=== PATIENT | female | born 1940 | race Caucasian/White ===

== ENCOUNTER 2019-04-30 10:13 | Inpatient (IN) ==
[2019-04-30] MEDS ORDERED: NS 1,000 ML IV ONE (10:36)
[2019-04-30] MEDS ORDERED: CARDIZEM IV ONE ×2 (10:36→12:48)
[2019-04-30 10:53] LABS: HEMATOCRIT 41.4 % (37.0-47.0); HEMOGLOBIN 13.2 g/dL (12.0-16.0); MCH 25.5 PG (27-31); MCHC 31.9 g/dL (33-37); MCV 79.9 FL (81-99); MPV 10.5 FL (7.4-10.4); RBC 5.18 XMIL (4.2-5.4); RDW 17.8 % (11.5-14.5); WBC 7.14 X1000 (4.8-10.8)
[2019-04-30 11:06] LABS: ALLEN TEST YES; BE -1.3 mmoll (-3.0-3.0); BLOOD TYPE ARTERIAL; HCO3-(ACT) 23.9 mmoll (20.0-26.0); METHB 0.8 % (0.0-1.5); O2(CT) 17.8 mL/dL (15.0-23.0); O2HB 95.4 % (95.0-99.0); PCO2(98.6) 35 mmHg (35-45); PO2(98.6) 89 mmHg (60-100); SAMPLE BLOOD; SAO2 97.4 % (95.0-100.0); THB 13.2 g/dL (11.5-17.4); pH(98.6) 7.42 (7.35-7.45)
[2019-04-30 11:07] LABS: MODALITY ROOM AIR
[2019-04-30] MEDS ORDERED: ASPIRIN PO ONE (11:21)
--- NOTE | 2019-04-30 11:21 | PROVIDER DOCUMENTATION ---
HPI-Cardiac General - General Chief Complaint: Palpitations Stated Complaint: HEART PT-HEART RACING Time Seen by Provider: 04/30/19 10:26 Source: patient Allergies/Adverse Reactions: Patient Allergies Allergy/AdvReac Type Severity Reaction Status Date / Time No Known Allergies Allergy Verified 04/30/19 11:02 Home Medications: Home Medication List Medication Instructions Recorded Confirmed Last Taken Type Allopurinol [Zyloprim] 100 mg PO QHS 10/29/17 04/30/19 04/29/19 History Amlodipine Besylate [Norvasc] 5 mg PO QPM 10/29/17 04/30/19 04/29/19 History Aspirin [Aspir-Low] 81 mg PO QAM 10/29/17 04/30/19 04/29/19 History Calcium Carb, Citrate/Vit D3 1 each PO BID 10/29/17 04/30/19 04/30/19 History [Calcium + D3 ER Tablet] Potassium Chloride [Klor-Con M20] 20 meq PO DAILY 03/02/18 04/30/19 04/30/19 History Rivaroxaban [Xarelto] 15 mg PO DAILY #30 tab 03/03/18 04/30/19 04/29/19 Rx Atorvastatin Calcium 1 tab PO DAILY 04/25/19 04/30/19 04/30/19 History Levothyroxine Sodium 1 tab PO DAILY 04/25/19 04/30/19 04/30/19 History Metoprolol Tartrate 1 tab PO BID 04/25/19 04/30/19 04/30/19 History Torsemide [Demadex] 1 tab PO DAILY 04/25/19 04/30/19 04/30/19 History - History of Present Illness-Cardiac Nature of Presenting Problem: Patient with h/o Afib compliant with med reports palpitation/fast heart rate this morning with mild sob. denies nausea, vomiting or diaphoresis. has no acute exacerbation of her chronic mild aching chest pain. She took her regular dose of metoprolol 25mg around 7am today but still symptomatic. She takes baby ASA at bed time Quality of Pain: reports: aching Timing: intermittent Context/Activities at Onset: reports: none Modifying Factors: improves with: palpation Palpitation Quality: fast/pounding heart beat History of arrythmia: reports: A-Fib Nitro Today/Relief: reports: no nitro taken today Aspirin Treatment Today: reports: no aspirin today Associated Symptoms: reports: denies symptoms Review of Systems - Adult - REVIEW OF SYSTEMS - ADULT Constitutional: reports: no symptoms reported Eyes: reports: no symptoms reported Ears, Nose, Mouth & Throat: reports: no symptoms reported Cardiovascular: reports: see HPI Respiratory: reports: see HPI Gastrointestinal: reports: no symptoms reported Genitourinary: reports: no symptoms reported Musculoskeletal: reports: no symptoms reported Integumentary: reports: no symptoms reported Neurological: reports: no symptoms reported Psychiatric: reports: no symptoms reported Endocrine: reports: no symptoms reported Hematologic/Lymphatic: reports: no symptoms reported Allergic/Immunologic: reports: no symptoms reported Past History - Adult - PAST MEDICAL HISTORY-ADULT Review of Records: reports: Nursing Assessment Review, Medications Reviewed, Social history reviewed & non-contributory. Major Childhood Illnesses: reports: denies history Cardiovascular: reports: A-Fib, HTN Respiratory: reports: denies history Gastrointestinal: reports: GERD Obstetrical/Gynecological: reports: denies history Genitourinary: reports: denies history Musculoskeletal: reports: denies history Neurological: reports: denies history Endocrine/Immune: reports: Diabetes Other Conditions: reports: denies history - PRIOR SURGERIES/PROCEDURES Surgical/Procedure History: reports: none - IMMUNIZATION STATUS Childhood Immunizations: See Nurse Assessment Flu Vaccine: See Nurse Assessment - FAMILY HISTORY Family History: reviewed, not pertinent - SOCIAL HISTORY Smoking: denies Substance Use: none/never Alcohol Use Frequency: never Physical Exam-General - PHYSICAL EXAM-ADULT Initial Vital Signs Reviewed: Yes - CONSTITUTIONAL General Appearance: appears well, alert, no apparent distress - EYES Eyes: PERRL/EOMI - HEAD, EARS, NOSE, MOUTH & THROAT HENMT: normocephalic/atraumatic, moist mucous membranes - NECK Neck: non-tender, full range of motion, supple - RESPIRATORY Respiratory: chest non-tender, lungs clear, normal breath sounds - CARDIOVASCULAR Cardiovascular: no edema, tachycardia - GASTROINTESTINAL (ABDOMEN) Abdominal Exam: non tender, soft, no organomegaly - MUSCULOSKELETAL Back Exam: normal inspection, no CVA tenderness, no vertebral tenderness Extremity: no pedal edema, no calf tenderness - SKIN Integumentary: normal color - NEUROLOGIC Neurologic: community manager II-XII nml as tested - PSYCHIATRIC Psych/Mental Status: oriented x 3 - HEART Score HEART Score: History: Slightly Suspicious HEART Score: ECG: Non-Specific Repolarization Disturbance/LBBB/PM HEART Score: Age: > or = 65 Years HEART Score: Risk Factors for Atherosclerotic Disease: > or = 3 Risk Factors or History of Atherosclerotic Disease HEART Score: Troponin: < or = Normal Limit Total HEART Score:: 5 Progress - PLAN OF CARE/RESULTS Progress/Plan/Lab Results: Bedside Urine ED: Urine Bedside Start: 04/30/19 10:39 Freq: NOW Status: Inactive Protocol: Activity Type Activity Date Activity User E-Sign Co-Sign Detail Recorded Client Recorded Date Recorded By Edit Status 04/30/19 11:21 AKOTUGUOR Active=>Inactive [id number] 04/30/19 11:21 AKOTUGUOR Orders Category Date Time Status [facility] Routine [id number] 04/30/19 13:41 Active Activity - Up with Assistance ORDERED Care 04/30/19 13:41 Active Cardiac Monitoring DIRECTED Care 04/30/19 10:39 Completed Currently Rec Anticoagulation [QM] ROUTINE Care 04/30/19 13:41 Completed Daily Weights 0500 Care 04/30/19 16:03 Active FSBS/Accucheck Result Q4H Care 04/30/19 10:39 Completed FSBS/Accucheck Result Q4H Care 04/30/19 13:44 Active Intake and Output-Strict ORDERED Care 04/30/19 13:41 Active Misc. NRSG Communication Order DIRECTED Care 04/30/19 15:06 Active Nursing- MD Consult Request ROUTINE Care 04/30/19 13:43 Completed Saline Loc NOW Care 04/30/19 10:39 Completed Z-Document. for Tele Applied ORDERED Care 04/30/19 13:42 Completed Physician/Provider Consults Routine Cons 04/30/19 13:41 Ordered Diabetic Diet Diet 04/30/19 13:43 Active cxr [CHEST-1 VIEW] [RAD] Stat Exams 04/30/19 12:44 Completed ABG [RESP] Routine Lab 04/30/19 10:57 Completed ACETONE SERUM [CHEM] Stat Lab 04/30/19 10:36 Completed BLOOD CULTURE [BLDCUL] Stat Lab 04/30/19 13:46 Results CBC WITH DIFF [HEME] Routine Lab 05/01/19 05:56 Completed CBC WITH NO DIFF [HEME] Stat Lab 04/30/19 10:36 Completed CK PROFILE [SP CHEM] Stat Lab 04/30/19 10:36 Completed COMPREHENSIVE METABOLIC PANEL [CHEM] Stat Lab 04/30/19 10:36 Completed INFLUENZA SCREEN A/B Stat Lab 04/30/19 15:25 Completed LACTATE, PLASMA [CHEM] Stat Lab 04/30/19 10:36 Completed LACTATE, PLASMA [CHEM] Stat Lab 04/30/19 13:46 Completed MAGNESIUM [CHEM] Stat Lab 04/30/19 10:36 Completed PHOSPHORUS [CHEM] Stat Lab 04/30/19 10:36 Completed PRO B-NATRIURETIC PEPTIDE Stat Lab 04/30/19 13:46 Completed RENAL PROFILE [CHEM] Routine Lab 05/01/19 05:56 Completed TROPONIN T Stat Lab 04/30/19 10:36 Completed TROPONIN T Stat Lab 04/30/19 13:46 Completed TSH Stat Lab 04/30/19 10:36 Completed TSH Stat Lab 04/30/19 13:46 Completed URINALYSIS [URINALYSIS] Stat Lab 04/30/19 13:05 Ordered 0.9% Sodium Chloride Inj [Ns] 1,000 ml Med 04/30/19 10:36 Discontinued IV 999 mls/hr Aspirin Med 04/30/19 11:21 Discontinued 81 mg PO NOW ONE Aspirin EC Med 05/01/19 09:00 Active 81 mg PO QAM Diltiazem 100 mg/Ns [Cardizem 100 mg/Ns] Med 04/30/19 13:30 Active 100 mg in 100 ml IV As Directed mls/hr Diltiazem [Cardizem] Med 04/30/19 10:36 Discontinued 10 mg IV NOW ONE Diltiazem [Cardizem] Med 04/30/19 12:48 Discontinued 10 mg IV NOW ONE Insulin Detemir [Levemir] Med 04/30/19 21:00 Active 25 unit SUBQ BID Insulin Detemir [Levemir] Med 04/30/19 13:43 Discontinued 35 unit SUBQ NOW ONE Insulin Human Regular [Humulin R] Med 04/30/19 13:21 Discontinued 10 unit IV NOW ONE Insulin Human Regular [Humulin R] Med 04/30/19 13:45 Active See Protocol SUBQ Q4H Insulin Lispro [Humalog] Med 04/30/19 16:00 Discontinued See Protocol SUBQ 0700,1100,1600,2100 Levothyroxine [Synthroid] Med 05/01/19 07:00 Active 75 microgm PO DAILY@0700 Levothyroxine [Synthroid] Med 05/01/19 09:00 Discontinued DOSE microgm PO DAILY Metoprolol [Lopressor] Med 04/30/19 20:00 Active 25 mg PO Q6HR Rivaroxaban [Xarelto] Med 05/01/19 09:00 Discontinued 15 mg PO DAILY Rivaroxaban [Xarelto] Med 04/30/19 17:00 Active 15 mg PO WSUPPER Oxygen Device Routine Oth 04/30/19 16:02 Completed Pulse Oximetry Routine Oth 04/30/19 16:02 Completed Telemetry [OM.EQ] Routine Oth 04/30/19 13:41 Active EKG [EKG] Routine Ther 04/30/19 10:39 Draft EKG [EKG] Stat Ther 04/30/19 13:10 Draft Transfer/Admit Order [TRANSFER] Routine Transfer 04/30/19 13:45 Completed Result Diagrams: 05/01/19 05:56 05/01/19 05:56 - REASSESSMENT Reassessment #1 Time Reassessed: 13:20 Status: improving (Seen and examined by me. Case discussed with Dr. Pugh at shift change. We will start patient on cardizem drip, culture her and look for a possible source of infection. I have not started antibiotics as this time as there is no obvous source. Also given IV insulin.) Reassessment Comment: HR still goes up above 100 with any minimal effort - EKG 1 Time of EKG reading by physician:: 10:20 EKG Read and Signed by:: Addis Pugh EKG Interpretation (*Must complete 3 of following elements*): Abnormal Rate: 149 Mozier: left QRS: normal 2 Time of EKG reading by physician:: 13:27 EKG Read and Signed by:: Husam Juarez EKG Interpretation (*Must complete 3 of following elements*): Abnormal Rate: 73 Rhythm: A flutter with variable block Mozier: normal QRS: other (early transition) ST Wave: non-specific ST changes Prior EKG Comparison: changes noted - CONSULTS/PCP/HOSPITALIST Notification #1 *Consult/PCP/Hospitalist*: Tyler Reason/Comments: consulted by Dr. Frias around 1300 - start on cardibartolo saray Consult Disposition: Admit #2 Consult: JOVAN Le Time Discussed: 13:23 Consult Disposition: Will see in ED - CHANGE OF SHIFT REPORT (ED Provider) 1 Report Given and Care Transferred to:: Dr Juarez as I was leaving to a different facility Time of Transfer: 13:00 Departure - Departure Date of Disposition Decision: 04/30/19 Time of Disposition Decision: 13:23 DIAGNOSIS: Atrial fibrillation with RVR, Lactic acidosis due to diabetes mellitus, Type 2 diabetes mellitus with hyperosmolarity, without long-term current use of insulin, Type 2 diabetes mellitus with hyperglycemia, without long-term current use of insulin Disposition: ADMITTED INPATIENT 09 Certified Medical Emergency: Emergent Condition: Fair - Critical Care Note This patient required my direct & personal management of CC.: Yes Total Time (mins): 45 Critical Care Statement: This patient required my direct personal management to treat or rule out processes, the absence of which, could potentiallly result in sudden, clinically significant life or limb threatening deterioration. Attestation - Physician/ RUBIO Attestation Patient care was provided by Advanced Practice Provider:: No The physician spent face to face time with patient:: Yes Advanced Practice Provider documentation review:: Supervising physician onsite and consulted in the evaluation and care of this patient. The physician did have a face to face encounter with the patient.
[2019-04-30 11:35] LABS: AGAP 20; ALB/GLOB RATIO 1.3; ALBUMIN 3.9 g/dL (3.5-5.0); ALKALINE PHOSPHATASE 109 U/L (32-104); BUN 30 mg/dL (8-22); CALCIUM 9.8 mg/dL (8.8-10.2); CHLORIDE 89 mmol/L (98-107); COSMO 289; CREATININE 2.1 mg/dL (0.5-0.9); ESTIMATED GFR 23; GLUCOSE 424 mg/dL (70-104); GOT 31 U/L (10-30); GPT 20 U/L (10-36); MAGNESIUM 1.8 mg/dL (1.5-2.7); PHOSPHORUS 4.4 mg/dL (2.7-4.5); POTASSIUM 4.3 mmol/L (3.5-5.1); SODIUM 132 mmol/L (136-145); TCO2 23 mmol/L (25-35); TOTAL BILIRUBIN 0.57 mg/dL (0.20-1.00); TOTAL PROTEIN 6.8 g/dL (6.3-8.3)
--- NOTE | 2019-04-30 11:50 | EKG Report ---
Test Performed on : 04/30/2019 10:17:44 AM Test Reason : papitation Blood Pressure : / mmHG Vent. Rate : 149 BPM Atrial Rate : 150 BPM P-R Int : 000 ms QRS Dur : 074 ms QT Int : 314 ms P-R-T Axes : 000 -16 029 degrees QTc Int : 494 ms Supraventricular tachycardia. Nonspecific T wave abnormality Abnormal ECG When compared with ECG of 25-APR-2019 09:04, (Unconfirmed) Sinus rhythm. has replaced Atrial fibrillation. Vent. rate has increased BY 49 BPM Unconfirmed Result
[2019-04-30 12:01] LABS: ACETONE SERUM NEGATIVE (NEGATIVE)
[2019-04-30] MEDS ORDERED: HUMULIN R IV ONE (13:21)
[2019-04-30] MEDS ORDERED: LEVEMIR SUBQ ONE (13:43)
[2019-04-30] MEDS: HUMULIN R SUBQ SCH ×3 (13:45→21:15)
[2019-04-30] MEDS: CARDIZEM 100 MG/NS 100 MG/100 ML IVPB IV SCH ×2 (14:12→23:21)
--- NOTE | 2019-04-30 14:13 | Diag Imaging Result Doc PS360 ---
CHEST-1 VIEW - 04/30/2019 INDICATION: sob COMPARISON: 04/25/2019 FINDINGS: The lungs are normally expanded and clear. Heart size and mediastinal contours are normal. No pneumothorax or pleural effusion. IMPRESSION: Negative exam. Electronically signed by Pradeep Valentin 04/30/2019 2:10 PM
--- NOTE | 2019-04-30 14:17 | HISTORY AND PHYSICAL ---
CHIEF COMPLAINT: My heart is racing. HISTORY OF PRESENT ILLNESS: This is a 79-year-old female with a history of atrial fibrillation/atrial flutter status post cardioversion in October 2017 that was unsuccessful. She presents to the emergency room complaining of her heart fluttering that started this morning. She denied any chest pain, any dizziness, any shortness of breath. On presentation to the emergency room she was found to be in atrial fibrillation with heart rates ranging from 150 to 190 for which she was given IV hydration and Cardizem 10 mg IV x2. PAST MEDICAL HISTORY: 1. Atrial fibrillation/atrial flutter status post cardioversion in October 2017. 2. Hypertension. 3. Gout. 4. Hyperlipidemia. 5. Gastroesophageal reflux disease. 6. Hypothyroid. 7. Diabetes mellitus type 2 on no medications as metformin was stopped secondary to diarrhea. SOCIAL HISTORY: She is . She denies any alcohol, tobacco, or illicit drug use. FAMILY HISTORY: Positive for coronary disease in her mother and her father of cancer. REVIEW OF SYSTEMS: Discussed with patient with pertinent positives stated in the HPI. She denied any syncope, dizziness, any chest pain, any shortness of breath, cough, fever, chills, night sweats, any nausea, vomiting, diarrhea, constipation, black or bloody vomitus or stools, any hematuria, dysuria, frequency, urgency. ALLERGIES: No known drug allergies. HOME MEDICATIONS: A list will be obtained by the nursing staff and once verified will review and restart as appropriate. PHYSICAL EXAM: This is a 79-year-old female who is lying on the stretcher in the emergency room in no distress. VITAL SIGNS: Blood pressure is 146/91, heart rates range from 86 to 190, respirations are 20, temperature is 98.1 degrees oral with room air saturations 99%. HEENT: Pupils equal, round, react to light. EOMs are intact. Sclerae are anicteric. Head is normocephalic, atraumatic. Mucous membranes are dry. NECK: Supple with trachea midline. CARDIOVASCULAR: Irregularly irregular rate and rhythm. S1 and S2 are appreciated. She has no lower extremity edema. Calves are nontender bilateral. PULMONARY: Breath sounds are clear. No increased work of breathing noted. Chest rises and falls symmetric with respiration. Chest wall is nontender to palpation. GASTROINTESTINAL: Abdomen soft, nontender, nondistended with bowel sounds in all 4 quadrants. NEUROLOGIC: She is alert, oriented x3. SKIN: Warm and dry. LABS: WBC is 7.1 with hemoglobin 13.2, hematocrit 41.4, platelets of 246,000. Sodium 132, potassium 4.3, BUN 30, creatinine 2.1 with a glucose of 424. Troponin is negative. Lactate is 3. TSH is 1.65. Acetone is negative. CO2 is 23 with a gap of 20. Chest x-ray is pending. ASSESSMENT AND PLAN: 1. Atrial fibrillation/atrial flutter with rapid ventricular rate in a patient status post cardioversion in October 2017. 2. Diabetes mellitus with hyperglycemia in a patient who metformin discontinued and is on no blood sugar controlling antidiabetic medications. 3. Hypertension. 4. Gout. 5. Gastroesophageal reflux disease. 6. Hypothyroid. PLAN: 1. The patient will be admitted to the PVC unit. She will be placed on a Cardizem drip. Will consult Cardiology. We will continue telemetry. Will identify her home medications and continue these as appropriate. Give Levemir 35 units subcu now, pattern blood glucose with sliding scale insulin. Repeat a CBC and renal profile in the morning. Will obtain a chest x-ray. 2. Acute kidney injury in the setting of chronic kidney disease. In review of her old labs, baseline creatinine looks like it is 1.4 to 1.6. Elevated creatinine today could be secondary to intravascular volume depletion due to blood sugar. Will continue to hydrate, treat blood sugars and trend her labs. We will hold any renal toxic medications, renal dose medications as appropriate. 3. For deep vein thrombosis prophylaxis will continue her anticoagulation. 4. Patient was examined and plan was discussed with Dr. Weber. Further treatments pending hospital course. Dictated by JOVAN Jeffers for Hattie Weber MD cc: JOVAN Jeffers MD I performed a face to face encounter on the patient. I reviewed all labs and imaging on the patient. I agree with the H&P as dictated. [facility]
--- NOTE | 2019-04-30 15:32 | EKG Report ---
Test Performed on : 04/30/2019 1:10:15 PM Test Reason : ED. NO order in [place] Blood Pressure : / mmHG Vent. Rate : 073 BPM Atrial Rate : 300 BPM P-R Int : 000 ms QRS Dur : 074 ms QT Int : 388 ms P-R-T Axes : 000 -16 -06 degrees QTc Int : 427 ms Atrial flutter. with variable AV block. Nonspecific ST and T wave abnormality Abnormal ECG When compared with ECG of 30-APR-2019 10:17, (Unconfirmed) Atrial flutter. has replaced Sinus rhythm. Vent. rate has decreased BY 76 BPM Nonspecific T wave abnormality, improved in Inferior leads Unconfirmed Result
--- NOTE | 2019-04-30 15:40 | CARDIOLOGY CONSULTATION ---
DATE: 04/30/2019 CHIEF COMPLAINT: Heart racing, lightheadedness. HISTORY OF PRESENT ILLNESS: Ms. Valencia is a 79-year-old white female with a history of atrial fib/flutter. She had a cardioversion performed in October 2017. She follows with myself as well as Dr. Nuñez. Last visit with Dr. Nuñez was in December 2018. At that time, she was having frequent PACs. There was a feeling that if she went back into some sort of atrial arrhythmia, she may need an AV node ablation with pacemaker implantation. Patient began in the last couple of days having more palpitations. This morning, she felt somewhat lightheaded as well as short of breath. She checked her heart rate and it was around 130. She presented to the ER for further evaluation. She was found to be in what appeared to be a rapid coarse atrial fibrillation versus atrial flutter, rates around 150. She was given Cardizem. She currently is in what appears to be a coarse atrial fibrillation with a rate of around 90 beats per minute. PAST MEDICAL HISTORY: 1. Significant for atrial fibrillation/atrial flutter status post PVI and RFA procedure in October 2017. She is maintained on anticoagulation in the form of Xarelto at 15 mg daily as well as metoprolol. She has had intolerances to amiodarone. 2. Hypertension. 3. Gout. 4. Hyperlipidemia. 5. Gastroesophageal reflux disease. 6. Hypothyroidism. 7. Diabetes. 8. Sleep apnea. SOCIAL HISTORY: She is . No alcohol, tobacco or illicit drugs. FAMILY HISTORY: Significant for coronary disease in her mother and father. REVIEW OF SYSTEMS: A 10
[2019-04-30] MEDS ORDERED: HUMALOG SUBQ SCH (16:00)
[2019-04-30] MEDS: XARELTO PO SCH (17:23)
[2019-04-30] MEDS: LOPRESSOR PO SCH (19:37)
[2019-04-30] MEDS: LEVEMIR SUBQ SCH (21:16)
[2019-05-01] MEDS: HUMULIN R SUBQ SCH ×6 (01:39→21:18)
[2019-05-01] MEDS: LOPRESSOR PO SCH ×4 (01:44→21:18)
[2019-05-01] MEDS: SYNTHROID PO SCH (06:34)
[2019-05-01 06:49] LABS: BASO# 0.03 X1000 (0.0-0.2); BASO% 0.5 % (0.0-0.8); EOS# 0.16 X1000 (0.0-0.7); EOS% 2.6 % (0.0-10.0); HEMOGLOBIN 10.9 g/dL (12.0-16.0); IMM GRAN# 0.06 X1000 (0.0-0.04); LYMPH# 1.76 X1000 (1.2-3.4); LYMPH% 28.6 % (20.5-51.1); MCH 26.1 PG (27-31); MCHC 32.1 g/dL (33-37); MCV 81.3 FL (81-99); MONO# 0.58 X1000 (0.11-0.59); MONO% 9.4 % (1.7-9.3); MPV 10.6 FL (7.4-10.4); NEUT# 3.57 X1000 (1.4-6.5); NEUT% 57.9 % (42.2-75.2); PLT 200 X1000 (130-400); RBC 4.18 XMIL (4.2-5.4); RDW 17.7 % (11.5-14.5); WBC 6.16 X1000 (4.8-10.8)
[2019-05-01 07:15] LABS: ALBUMIN 3.3 g/dL (3.5-5.0); CALCIUM 8.6 mg/dL (8.8-10.2); CREATININE 2.1 mg/dL (0.5-0.9); PHOSPHORUS 3.6 mg/dL (2.7-4.5); POTASSIUM 3.5 mmol/L (3.5-5.1)
[2019-05-01] MEDS: ASPIRIN EC PO SCH (08:26)
[2019-05-01] MEDS ORDERED: SYNTHROID PO SCH (09:00)
[2019-05-01] MEDS ORDERED: XARELTO PO SCH (09:00)
[2019-05-01] MEDS: LEVEMIR SUBQ SCH ×2 (09:29→21:19)
[2019-05-01 11:28] LABS: HEMOGLOBIN A1C 10.7 % (4.8-6.0)
[2019-05-01 11:52] LABS: URINE SOURCE CLEAN CATCH
[2019-05-01 11:56] LABS: BILIRUBIN URINE NEGATIVE (NEGATIVE); BLOOD URINE NEGATIVE (NEGATIVE); COLOR YELLOW; GLUCOSE URINE NEGATIVE (NEGATIVE); KETONE URINE NEGATIVE (NEGATIVE); LEUKOCYTES URINE NEGATIVE (NEGATIVE); NITRITE URINE NEGATIVE (NEGATIVE); PH URINE 5.5; PROTEIN URINE TRACE mg/dL (NEGATIVE); SP GRAVITY URINE 1.015; TURBIDITY URINE CLEAR (CLEAR); UROBILINOGEN URINE NORMAL (NORMAL)
[2019-05-01 11:58] LABS: UR EPITHELIAL CELLS <10 /HPF (<10); URINE BACTERIA NEGATIVE /HPF; URINE RBC <10 /HPF (<10); URINE WBC <10 /HPF (<10)
[2019-05-01 13:23] LABS: UR CREAT RANDOM 91.1 mg/dL (11-20); UR PROT RANDOM 14.5 mg/dL
--- NOTE | 2019-05-01 13:35 | CARDIOLOGY PROGRESS NOTE ---
DATE: 05/01/2019 CHIEF COMPLAINT: Palpitations, lightheadedness. SUBJECTIVE: Mrs. Valencia is feeling better today. Her heart rate appears to be better controlled. She was on IV Cardizem. is at the bedside. She is not in any distress. OBJECTIVE: Vital signs: Blood pressure is 125/68, temperature 98 degrees, pulse 65, respirations 22. General: She is awake, alert, oriented, no distress. HEENT: Unremarkable. Chest: Sounds clear to auscultation and percussion. Heart: Sounds irregularly irregular. No gallop or murmur. Abdomen: Her abdomen is nontender. Extremities: Showed good pulses, no edema. Neurologic exam: Follows commands, moves all 4 extremities. BLOOD WORK: Today, sodium 140, potassium 3.5, BUN 31, creatinine 2.1. Her glucose is 134. Her ProBNP was 2788 pg/mL yesterday. Hemoglobin A1c is 10.7%, which is very high. Her chest x-ray yesterday showed no CHF. IMPRESSION: 1. Patient who presented with recurrent paroxysmal atrial fibrillation with rapid response. 2. Status post pulmonary venous isolation. 3. Poorly controlled diabetes mellitus type 2. 4. History of hypertension. 5. History of hyperlipidemia. 6. History of sleep apnea syndrome. 7. Chronic kidney disease. RECOMMENDATIONS: At this time, I will suggest to continue present therapy as outlined by Dr. Zachery Scott on his consultation. There is a good chance that she may convert back to sinus rhythm. If she does not, then we will go ahead and arrange for cardioversion on Friday morning. We will observe her course in the hospital. At this time, her rate is controlled and she is feeling better. cc: Fareed Doty MD [facility]
--- NOTE | 2019-05-01 13:46 | NEPHROLOGY CONSULTATION ---
DATE: 05/01/2019 REASON FOR CONSULTATION: Chronic kidney disease. HISTORY OF PRESENT ILLNESS: Ms Erik orona is a 79-year-old white female with diabetes for at least 10 years as well as a history of atrial fibrillation, hypertension, gout, hypothyroidism, hyperlipidemia. She follows with Dr. Jack in [place] but her mainframe systems programmer is Dr. Scott. She has a history of atrial fibrillation, for which she has undergone ablation in the past. She came to the hospital because she had her typical symptoms of palpitations. Her evaluation disclosed abnormal kidney function. She has been treated successfully for her atrial fibrillation and she now has adequate rate control, though she is still in atrial fibrillation. She says Dr. Jack has told her in the past that her kidneys were not normal but that there is nothing specific that needed to be done. She does have a history of retinopathy. She is unaware of proteinuria. PAST MEDICAL HISTORY: As above. HOME MEDICATIONS: Include Xarelto, amlodipine, aspirin, calcium carbonate, allopurinol, potassium, levothyroxine, torsemide, atorvastatin, metoprolol. ALLERGIES: None. SOCIAL HISTORY: She is . Lives with her . No alcohol or tobacco. Family history and review of systems are noncontributory. She did have her [id number] who had chronic kidney disease and required dialysis. PHYSICAL EXAMINATION: Vital Signs: Blood pressure 125/68, heart rate 65, respirations 22, afebrile. General: Elderly white female lying at 45 degrees. No acute distress. Skin is warm and dry. Conjunctivae are pink. Pupils are equal. Oropharynx is clear. Normal tongue. Normal teeth. Neck: Supple. Trachea is midline. Neck vein distention is not present. Heart: PMI nondisplaced. Irregular rhythm but rate controlled. No murmurs or rubs. Lungs: Have equal excursion, equal breath sounds. No crackles or wheezes. Abdomen: Soft, nontender. Bowel sounds present. No organomegaly, masses, bruits. Extremities: No edema, clubbing or cyanosis. Neurologic: Nonfocal. IMPRESSION: Chronic kidney disease stage 4. Diabetic nephropathy most likely. Difficult to tell whether she has any acute component of kidney injury or whether it is all chronic. I will attempt to obtain copies of laboratory data from Dr. Jack in order to fill in the last 14 months during which time we have no data. Ultrasound, urine studies. cc: Nick Jewell MD
--- NOTE | 2019-05-01 14:41 | Diag Imaging Result Doc PS360 ---
US RENAL 2 (RETROPER) COMPLETE - 05/01/2019 INDICATION: eri/arf TECHNIQUE: COMPARISON: None FINDINGS: There is severe diffuse fatty change of the liver. The kidneys and urinary bladder are normal. No hydronephrosis, mass, or cyst. The right kidney measures 10.9 x 5 x 3.3 cm. The left kidney measures 11 x 4.3 x 4.7 cm. IMPRESSION: Normal exam of the urinary tract. Severe hepatic steatosis. Electronically signed by rPadeep Valentin 05/01/2019 2:39 PM
[2019-05-01] MEDS: CARDIZEM 100 MG/NS 100 MG/100 ML IVPB IV SCH (16:18)
[2019-05-01] MEDS: XARELTO PO SCH (16:53)
--- NOTE | 2019-05-01 18:00 | PROGRESS NOTE ---
DATE: 05/01/2019 SUBJECTIVE: The patient is resting comfortably in bed. She states that she feels good today. OBJECTIVE: Vital Signs: Temperature 98.4, blood pressure 149/86, heart rate 77, respirations 19, O2 saturation 95% on room air. General: This is an elderly female lying in bed in no acute distress. Heart: S1, S2 normal. Regular rate and rhythm. Lungs: Clear to auscultation bilaterally. Abdomen: Positive bowel sounds. Soft, nontender, nondistended. Extremities: No edema. No cyanosis. Neurologic: The patient is alert and oriented x4. LABORATORY DATA: White blood cell count 6.1, hemoglobin 10, hematocrit 34, platelets 200. Sodium 140, potassium 3.5, chloride 103, CO2 of 23, BUN 31, creatinine 2.1, glucose 134. Hemoglobin A1c 10.7. Albumin 3.3. ASSESSMENT AND PLAN: 1. Atrial fibrillation. The patient is currently on a Cardizem drip. Further management as directed by the refrigeration manager. 2. Uncontrolled diabetes mellitus type 2. Long-acting insulin has been initiated during the hospitalization. The patient's hemoglobin A1c is 10.7. We will continue with sliding-scale insulin. 3. Chronic kidney disease. Nephrology has been consulted for further recommendations. 4. Hypertension. Continue on the current treatment regimen. 5. Hypothyroidism. Continue on Synthroid. cc: Hattie Weber MD MTDD
[2019-05-01] MEDS: COLACE PO SCH ×2 (18:15→21:20)
[2019-05-01] MEDS ORDERED: INSULIN PEN NEEDLES ONE (21:26)
[2019-05-02] MEDS: HUMULIN R SUBQ SCH ×6 (00:38→22:32)
[2019-05-02] MEDS: LOPRESSOR PO SCH ×4 (02:10→22:33)
[2019-05-02] MEDS: SYNTHROID PO SCH (05:16)
[2019-05-02 06:36] LABS: HEMATOCRIT 33.7 % (37.0-47.0); HEMOGLOBIN 10.6 g/dL (12.0-16.0); MCH 26.1 PG (27-31); MCHC 31.5 g/dL (33-37); MPV 10.5 FL (7.4-10.4); RBC 4.06 XMIL (4.2-5.4); RDW 18.2 % (11.5-14.5); WBC 5.49 X1000 (4.8-10.8)
[2019-05-02 07:12] LABS: ALBUMIN 3.3 g/dL (3.5-5.0); CALCIUM 8.9 mg/dL (8.8-10.2); CREATININE 1.9 mg/dL (0.5-0.9); PHOSPHORUS 3.5 mg/dL (2.7-4.5); POTASSIUM 3.9 mmol/L (3.5-5.1)
[2019-05-02] MEDS: LEVEMIR SUBQ SCH ×2 (08:22→22:32)
[2019-05-02] MEDS: ASPIRIN EC PO SCH (08:22)
[2019-05-02] MEDS: COLACE PO SCH ×2 (10:27→22:33)
--- NOTE | 2019-05-02 12:11 | CARDIOLOGY PROGRESS NOTE ---
DATE: 05/02/2019 CHIEF COMPLAINT: Palpitations, irregular heartbeat. SUBJECTIVE: Ms. Valencia had more palpitations through the night. Heart rate was apparently going up and down. This morning, she is more stable, and she feels basically all right. OBJECTIVE: Blood pressure is 128/85, temperature 98.3, pulse 76. She is in atrial flutter with controlled rate. Respirations 18. She is awake, alert, oriented, no distress. HEENT: Normal. Chest is clear to auscultation and percussion. Heart sounds are slightly irregular. No gallop or murmur. Her abdomen is nontender, obese. No masses. No hepatomegaly. Extremities showed good pulses, no edema. Neurologic: Follows commands. Moves all 4 extremities. DIAGNOSTIC DATA: Blood work shows sodium 143, potassium 3.9, BUN is 27, creatinine 1.9. Albumin is 3.3. Hemoglobin is 10.6. IMPRESSION: 1. The patient presented with palpitations and atrial flutter was identified. 2. History of hypertension. 3. Hyperlipidemia. 4. Sleep apnea syndrome. 5. Diabetes mellitus type 2. RECOMMENDATIONS: At this time, we will continue the patient on diltiazem, and we will keep her on metoprolol initiated by Dr. Scott. Tomorrow she is going to undergo cardioversion. The procedure was explained to her. She understands and is agreeable to it. Further intervention will depend on the results of the cardioversion, and Dr. Scott will give the final recommendation as far as medical regimen at the time of discharge. cc: Fareed Doty MD
--- NOTE | 2019-05-02 16:42 | PROGRESS NOTE ---
DATE: 05/02/2019 SUBJECTIVE: The patient is resting comfortably in bed. She has no complaints at this time. She remains in atrial fibrillation. OBJECTIVE: Vital Signs: Temperature 98.2 degrees, blood pressure 149/73, heart rate 85, respirations 17, O2 saturation 92% on room air. General: This is a chronically ill-appearing elderly female lying in bed in no acute distress. Heart: S1, S2 normal. Irregularly irregular rhythm. Lungs: Clear to auscultation bilaterally. No wheezing. No rales. No rhonchi. Abdomen: Positive bowel sounds. Soft, nontender, nondistended. Extremities: No edema, no cyanosis. Neurologic: The patient is alert and oriented x4. LABS: White blood cell count 5.4, hemoglobin 10, hematocrit 33, platelets 197,000. Sodium 143, potassium 3.9, chloride 105, CO2 22, BUN 27, creatinine 1.9, glucose 179. ASSESSMENT AND PLAN: 1. Atrial fibrillation. Continue on the current treatment regimen as directed by the sales support administrator. 2. Uncontrolled diabetes mellitus type 2. Continue on Levemir plus sliding scale insulin. 3. Hypothyroidism. Continue on Synthroid. 4. Chronic kidney disease. Stable. cc: Hattie Weber MD
[2019-05-02] MEDS: XARELTO PO SCH (16:51)
[2019-05-02] MEDS: CARDIZEM 100 MG/NS 100 MG/100 ML IVPB IV SCH (22:38)
[2019-05-03] MEDS: HUMULIN R SUBQ SCH ×6 (01:04→20:37)
[2019-05-03] MEDS: LOPRESSOR PO SCH ×4 (02:23→20:38)
[2019-05-03 06:33] LABS: CALCIUM 8.5 mg/dL (8.8-10.2); CREATININE 1.9 mg/dL (0.5-0.9); MAGNESIUM 2.2 mg/dL (1.5-2.7); POTASSIUM 3.9 mmol/L (3.5-5.1)
--- NOTE | 2019-05-03 08:50 | PROGRESS NOTE ---
DATE: 05/03/2019 TIME SEEN: 0715. SUBJECTIVE: Ms. Valencia is resting quietly in bed. She states that she is feeling slightly better today, with possible discharge. OBJECTIVE: Her most recent vital signs, temperature 98.7 degrees, blood pressure 122/69, heart rate 64, respirations 25. She is on room air. Last recorded saturation 95%. She has had 0 recorded in, though she has been NPO for a test this a.m. She has had 1850 out to void. Labs: Sodium 141, potassium 3.9, chloride is 105, CO2 is 21, BUN 22, creatinine 1.9, glucose 145, her anion gap is 15, her calcium is 8.5, albumin is 2.2. With a hemoglobin of 10.6. Blood cultures are negative. Physical Examination: General: This is a 79-year-old, white female, currently resting quietly in bed. She appears in no acute distress. Her skin is warm and dry. HEENT: Normocephalic, atraumatic. Conjunctivae are pale pink. She has JOYCELYN. Mucous membranes are dry. Neck: Supple. Trachea midline. No evidence of JVD. Cardiovascular: She is irregular rate and rhythm. She is rate controlled. No murmur or gallop appreciated. Lungs: Clear to auscultation bilaterally. Equal excursion, on room air. Abdomen: Soft, nontender. Positive bowel sounds. Genitourinary: Not inspected. Patient has been voiding, adequate amount recorded. Extremities: Have no edema. No clubbing or cyanosis. Neurological: She is alert and oriented x3. ASSESSMENT AND PLAN: 1. Chronic kidney disease stage 3. Patient's baseline creatinine is 1.2, now at 1.9. KIKI in the context of atrial fibrillation with rapid ventricular response, recurrent. She is now rate controlled. Her creatinine continues to improve. Adequate urine output is documented. We will plan for followup in our office upon discharge. 2. Electrolytes and acid-base balance. These are acceptable. 3. Anemia. This is stable at 10.6. 4. Atrial fibrillation with rapid ventricular response. The patient remains on diltiazem drip, followed by cardiology. I would like to thank you for allowing us to follow with this patient. Dictated by JOVAN Hernandez for Nick Jewell MD Face to face encounter, data reviewed, discussed with Mary Hernandez on 05/03/19. I agree with the above assessment and plan of care. cc: JOVAN Hernandez MD MTDD
--- NOTE | 2019-05-03 09:55 | EKG Report ---
Test Performed on : 05/03/2019 09:45:44 AM Test Reason : afib Blood Pressure : / mmHG Vent. Rate : 088 BPM Atrial Rate : 293 BPM P-R Int : 000 ms QRS Dur : 078 ms QT Int : 422 ms P-R-T Axes : 000 -09 020 degrees QTc Int : 510 ms Atrial flutter. with variable AV block. Prolonged QT Abnormal ECG When compared with ECG of 30-APR-2019 13:10, (Unconfirmed) QT has lengthened Confirmed by Puja PEARCE, Raymond ([id number]) on 05/03/2019 7:22:41 PM
[2019-05-03] MEDS: ASPIRIN EC PO SCH (10:00)
[2019-05-03] MEDS: COLACE PO SCH ×3 (10:00→20:39)
[2019-05-03] MEDS: SYNTHROID PO SCH (10:00)
[2019-05-03] MEDS: XARELTO PO SCH ×2 (10:00→16:54)
[2019-05-03] MEDS: LEVEMIR SUBQ SCH ×2 (10:03→20:38)
[2019-05-03] MEDS ORDERED: CLAVE TWINSITE 32 IN 11959 ONE (11:59)
[2019-05-03] MEDS ORDERED: ANESTHESIA PB SET 88 IN 5742 ONE (11:59)
[2019-05-03] MEDS ORDERED: NS 500 ML ONE (11:59)
[2019-05-03] MEDS ORDERED: DIPRIVAN 1% ONE (12:22)
--- NOTE | 2019-05-03 13:23 | EKG Report ---
Test Performed on : 05/03/2019 1:17:51 PM Test Reason : post cardioversion Blood Pressure : / mmHG Vent. Rate : 080 BPM Atrial Rate : 080 BPM P-R Int : 200 ms QRS Dur : 076 ms QT Int : 384 ms P-R-T Axes : 073 001 047 degrees QTc Int : 442 ms Normal sinus rhythm. Normal ECG When compared with ECG of 03-MAY-2019 09:45, (Unconfirmed) Sinus rhythm. has replaced Atrial flutter. QT has shortened Confirmed by Puja PEARCE, Raymond ([id number]) on 05/03/2019 7:23:51 PM
--- NOTE | 2019-05-03 14:08 | CARDIAC CATH REPORT ---
PROCEDURE NAME: - PROCEDURE PERFORMED: Cardioversion. INDICATION FOR THE PROCEDURES: Atrial flutter. PROCEDURE IN DETAIL: Ms. Valencia was brought to the catheterization laboratory in a fasting state. Informed consent was obtained. Prepped in the usual fashion. She was ensured to be on continuous anticoagulation for the last month with no interruptions. Patient was sedated per anesthesia. After appropriate sedation, one shock was delivered at 120 joules with conversion to sinus rhythm. The patient tolerated the procedure well without any complications. She will be referred back over to the electrophysiology service and Dr. Oconnell for consideration of an AV node ablation and pacemaker. She will continue in the interim on 50 mg b.i.d. of metoprolol and Xarelto 15 mg nightly. cc: Zachery Scott MD
--- NOTE | 2019-05-03 17:48 | PROGRESS NOTE ---
DATE: 05/03/2019 SUBJECTIVE: The patient is resting comfortably in bed. She has no complaints. OBJECTIVE: Vital Signs: Temperature 97.5 degrees, blood pressure 146/74, heart rate 88, respirations 22, and O2 saturation 96% on room air. General: This is a chronically ill-appearing elderly female, lying in bed in no acute distress. Heart: S1, S2 normal. Abdomen: Positive bowel sounds. Soft, nontender, nondistended. Extremities: No edema, no cyanosis. Neurologic: The patient is alert and oriented x3. LABORATORIES: Reviewed. ASSESSMENT AND PLAN: 1. Atrial flutter. The patient is scheduled for cardioversion today. Further management as per the matcher operator. 2. Chronic kidney disease stage 3. Stable. Management as per the tour consultant. 3. Uncontrolled diabetes mellitus type 2. Continue on the current insulin regimen plus the diabetic diet. 4. Hypothyroidism. Continue on Synthroid. 5. Constipation. Improved. Continue on the current laxative regimen. 6. Deep vein thrombosis prophylaxis. The patient is currently on Xarelto. cc: Hattie Weber MD
[2019-05-04] MEDS: LOPRESSOR PO SCH ×2 (01:42→08:48)
[2019-05-04] MEDS: HUMULIN R SUBQ SCH ×3 (01:42→09:37)
[2019-05-04] MEDS: SYNTHROID PO SCH (06:03)
[2019-05-04 06:32] LABS: CALCIUM 8.5 mg/dL (8.8-10.2); CREATININE 1.6 mg/dL (0.5-0.9); POTASSIUM 3.9 mmol/L (3.5-5.1)
[2019-05-04 07:19] VITALS: BP 142/71
[2019-05-04] MEDS: ASPIRIN EC PO SCH (08:48)
[2019-05-04] MEDS: COLACE PO SCH (08:48)
[2019-05-04] MEDS: LEVEMIR SUBQ SCH (08:49)
--- NOTE | 2019-05-04 11:41 | DISCHARGE SUMMARY ---
ADMISSION DATE: 04/30/2019 DISCHARGE DATE: 05/04/2019 DISCHARGE DISPOSITION: Home. DISCHARGE CONDITION: Hemodynamically stable. Ms. Valencia is in normal sinus rhythm. She denies any chest pain or shortness of breath next. DISCHARGE DIAGNOSES: 1. Palpitation due to atrial fibrillation/Flutter with rapid ventricular rate. 2. Uncontrolled diabetes mellitus type 2 with hyperglycemia now requiring insulin. OTHER DIAGNOSES: 1. History of atrial fibrillation and flutter requiring ablation in October 2017 on chronic anticoagulation. 2. History of essential hypertension. 3. History of gout. 4. Hyperlipidemia. 5. Gastroesophageal reflux disease. 6. Hypothyroidism. 7. Diabetes mellitus was taken off metformin because of diarrhea. 8. History of chronic kidney disease stage 3. DISCHARGE MEDICATIONS: Allopurinol 100 mg at nighttime, aspirin 81 mg in the morning time, atorvastatin 40 mg daily, calcium vitamin D 1 tablet daily, torsemide 20 mg daily, potassium chloride 20 mEq daily, levothyroxine 75 mcg daily, amlodipine 5 mg at evening time, Levemir 35 units subcutaneously daily, 30 day supply with 1 refill has been prescribed. Metoprolol tartrate 50 mg b.i.d., rivaroxaban 15 mg daily. VITAL SIGNS: At the time of discharge, temperature 97.6 degrees, pulse 71, respiratory rate 16, blood pressure 140/70, saturating 97% on room air. PHYSICAL EXAMINATION: General: Not in acute distress. HEENT: Oral cavity is moist. Respiratory: Air entry equal bilaterally. No wheeze or crackles. Cardiovascular: S1, S2 normal. No murmur or gallop. Abdomen: Soft, nontender. Extremity: No lower extremity edema. Central Nervous System: She is alert and oriented x3. At nighttime she uses CPAP for obstructive sleep apnea. SIGNIFICANT LABS DURING HOSPITAL ADMISSION: At discharge hemoglobin 10.6, platelets 197,000. BUN 21, creatinine 1.6, blood glucose 133. Microbiology: Influenza screen was negative. Blood culture did not have any growth for 48 hours significant. SIGNIFICANT IMAGING DURING HOSPITAL ADMISSION: Chest x-ray on presentation did not have any acute cardiopulmonary process. Renal ultrasound had hepatic steatosis. Electrocardiogram on presentation had a supraventricular tachycardia due to atrial flutter with variable AV block. HOSPITAL COURSE SUMMARY: Ms. Valencia is a 79-year-old lady with past medical history of atrial fibrillation or atrial flutter, who came in on 04/30/2019 with chief complaints of racing of her heart. She was seeing sheep clipper outpatient for her atrial fibrillation and had required cardioversion in October 2017 and she has been on chronic anticoagulation. On presentation in the emergency room, she was found to have atrial flutter with variable AV block, so she was started on rate controller medication with diltiazem drip, which controlled her rate, but she continued to remain in atrial flutter, so ultimately, she underwent cardioversion on 05/03/2019, which she tolerated well. Post cardioversion her rhythm was restored back to normal sinus rhythm. It was decided to increase her metoprolol dose, continue her on Xarelto and discharge her home to have outpatient followup with her routine sheep clipper as well as with school administrator for potential evaluation for AV barby ablation and pacemaker in the future. At the time of discharge, she is denying any palpitations. She was also found to have uncontrolled diabetes with blood glucose of 400 on presentation. She did have prior history of diabetes and was taking metformin for a long time. However, she was taken off metformin several months ago because of diarrhea and was never started on any medications. Considering her hemoglobin A1c was 10.7 on presentation, it was decided to start her on insulin long-acting. At the time of discharge she will be discharged on insulin. She was provided information about how to inject insulin as well as keeping a blood glucose log and to have outpatient follow up with her regular provider. TIME SPENT: 25 minutes of time was spent discharging this patient. DISCHARGE INSTRUCTIONS: Plan of care was extensively discussed with her. I counseled her about her diabetes, atrial fibrillation, need for cardiology, regular physician followup, need for blood glucose monitoring. I answered all of her questions. cc: MD RANJEET Estrada
== END 2019-05-04 10:14 | disposition home or self-care (01) ==
LOC: SUPCPDRO → ED 10:13 → SUATTDRO 16:31 → 2N 16:31
PROVIDERS: ATTEND Internal Medicine